=== PATIENT | male | born 1995 | race Caucasian/White ===

== ENCOUNTER 2019-02-25 05:55 | Inpatient (IN) | payer OTHER ==
[2019-02-25] VITALS (17 sets, daily range): BP systolic 109–133; BP diastolic 61–92; Ht 177.8 cm; Wt 59.6 kg
[~2019-02-25] VITALS: Ht 177.8 cm; Wt 59.6 kg
[2019-02-25 06:39] LABS: BASOPHIL % 0.4 % (0-2); PLATELET COUNT 373 x10^3mcL (130-400); RED CELL DISTRIBUTION WIDTH 13.4 % (11.5-14.5)
[2019-02-25 06:45] LABS: CALCIUM 9.2 mg/dL (8.5-10.1); CARBON DIOXIDE 14.2 mmol/L (21-32); CHLORIDE SERUM 99 mmol/L (98-107); CREATININE SERUM 1.2 mg/dL (0.7-1.3); GFR1 > 60 mL/min; GLUCOSE SERUM 275 mg/dL (74-106); SODIUM SERUM 138 mmol/L (136-145)
[2019-02-25 06:51] LABS: ALBUMIN 4.1 g/dL (3.4-5.0); ALKALINE PHOSPHATASE 107 U/L (46-116); ALT/SGPT 26 U/L (16-63); AST/SGOT 32 U/L (15-37); BILIRUBIN TOTAL 0.2 mg/dL (0.20-1.00)
[2019-02-25 07:15] LABS: TOTAL PROTEIN, SERUM 8.6 g/dL (6.4-8.2)
[2019-02-25] MEDS ORDERED: KEPPRA1000 M1 PO (08:38)
[2019-02-25] MEDS ORDERED: DILANTIN100 MG PO (08:39)
[2019-02-25 11:26] LABS: CHOLESTEROL/HDL RATIO 3.5; MAGNESIUM 2.4 mg/dL (1.8-2.4); PHOSPHOROUS 1.9 mg/dL (2.5-4.9)
[2019-02-25 11:36] LABS: T3 TOTAL 0.77 ng/mL
[2019-02-25 13:50] LABS: microscopic required? YES; urine erythrocyte 3+ (NEGATIVE)
[2019-02-25 14:47] LABS: AMPHETAMINE QUAL UR NONE DETECTED (See below)
[2019-02-25 14:55] LABS: FREE T4 0.91 ng/dL (0.76-1.46); FREE THYROXINE INDEX 1.9 ug/dL (1.4-4.5); T4(THYROXINE) 5.4 ug/dL (4.7-13.3)
== END 2019-02-26 01:09 | disposition short-term general hospital (02) | DRG 53 ==
LOC: ED → IC 07:42
PROVIDERS: Emergency Medicine; ADMIT General Practice
PROC: 5A1935Z Respiratory Ventilation, Less than 24 Consecutive Hours (ICD-10-PCS; principal; 2019-02-25)
PROC: 0BH17EZ Insertion of Endotracheal Airway into Trachea, Via Natural or Artificial Opening (ICD-10-PCS; 2019-02-25)
DX: G40.801 Other epilepsy, not intractable, with status epilepticus (principal); J96.00 Acute respiratory failure, unspecified whether with hypoxia or hypercapnia; E83.39 Other disorders of phosphorus metabolism; K21.9 Gastro-esophageal reflux disease without esophagitis; F41.9 Anxiety disorder, unspecified; Z87.820 Personal history of traumatic brain injury; Z88.0 Allergy status to penicillin
CPT/HCPCS: 84439; A4628; G0378; J1165; J2060; J2250; J2560; J2704; J7030

== ENCOUNTER 2019-10-21 09:24 | Emergency (ER) | payer OTHER ==
[~2019-10-21] VITALS: Ht 177.8 cm; Wt 72.6 kg
[~2019-10-21 09:24] MED LIST: DILANTIN100 MG PO; KEPPRA1000 M1 PO
[2019-10-21 09:30] VITALS: Ht 177.8 cm; Wt 72.6 kg
[2019-10-21 10:28] LABS: CALCIUM 9.3 mg/dL (8.5-10.1); CARBON DIOXIDE 23.2 mmol/L (21-32); CHLORIDE SERUM 101 mmol/L (98-107); CREATININE SERUM 1.1 mg/dL (0.7-1.3); GFR1 > 60 mL/min; GLUCOSE SERUM 122 mg/dL (74-106); POTASSIUM SERUM 3.7 mmol/L (3.5-5.1); SODIUM SERUM 140 mmol/L (136-145)
[2019-10-21 10:29] LABS: UA SPECIFIC GRAVITY 1.025 (1.005-1.035); microscopic required? YES; urine erythrocyte NEGATIVE (NEGATIVE)
[2019-10-21 10:38] LABS: ALBUMIN 4.5 g/dL (3.4-5.0); ALKALINE PHOSPHATASE 134 U/L (46-116); ALT/SGPT 32 U/L (16-63); AST/SGOT 24 U/L (15-37); BILIRUBIN TOTAL 0.19 mg/dL (0.20-1.00); CHOLESTEROL 170 mg/dL (<200); HDL CHOLESTEROL 44 mg/dL (40-60); LIPASE 106 IU/L (73-393)
[2019-10-21 10:47] LABS: BASOPHIL % 0.2 % (0-2); PLATELET COUNT 312 x10^3mcL (130-400); RED CELL DISTRIBUTION WIDTH 13.1 % (11.5-14.5); TOTAL PROTEIN, SERUM 8.9 g/dL (6.4-8.2)
[2019-10-21 12:49] LABS: AMPHETAMINE QUAL UR NONE DETECTED (See below)
[2019-10-21 14:32] VITALS: BP 109/63
== END 2019-10-21 14:33 | disposition home or self-care (01) ==
LOC: ED 09:24
PROVIDERS: Emergency Medicine
DX: G40.909 Epilepsy, unspecified, not intractable, without status epilepticus (principal); F10.10 Alcohol abuse, uncomplicated; Z88.0 Allergy status to penicillin; Z98.890 Other specified postprocedural states
CPT/HCPCS: 83880; G0480; J2405; Q0092

== ENCOUNTER 2019-11-10 11:31 | Emergency (ER) | payer OTHER ==
[~2019-11-10] VITALS: Ht 180.3 cm; Wt 62.1 kg
[2019-11-10 11:32] VITALS: Ht 180.3 cm; Wt 62.1 kg
[2019-11-10 13:03] VITALS: BP 111/61
== END 2019-11-10 13:03 | disposition home or self-care (01) ==
LOC: ED 11:31
DX: R42 Dizziness and giddiness (principal); Z76.0 Encounter for issue of repeat prescription; Z88.0 Allergy status to penicillin
CPT/HCPCS: 82962

== ENCOUNTER 2020-03-16 08:50 | Emergency (ER) | payer OTHER ==
[~2020-03-16] VITALS: Ht 165.1 cm; Wt 59.0 kg
[2020-03-16 09:13] VITALS: Ht 165.1 cm; Wt 59.0 kg
[2020-03-16 10:09] LABS: CALCIUM 8.9 mg/dL (8.5-10.1); CARBON DIOXIDE 28.3 mmol/L (21-32); CHLORIDE SERUM 99 mmol/L (98-107); CREATININE SERUM 0.7 mg/dL (0.7-1.3); GFR1 > 60 mL/min; GLUCOSE SERUM 91 mg/dL (74-106); POTASSIUM SERUM 4.5 mmol/L (3.5-5.1); SODIUM SERUM 134 mmol/L (136-145)
[2020-03-16 10:14] LABS: ALBUMIN 4.1 g/dL (3.4-5.0); ALKALINE PHOSPHATASE 94 U/L (46-116); ALT/SGPT 29 U/L (16-63); AST/SGOT 28 U/L (15-37); BILIRUBIN TOTAL 0.23 mg/dL (0.20-1.00)
[2020-03-16 12:20] LABS: AMPHETAMINE QUAL UR NONE DETECTED (See below)
[2020-03-16 12:32] VITALS: BP 115/74
== END 2020-03-16 12:32 | disposition home or self-care (01) ==
LOC: ED
PROVIDERS: Emergency Medicine
DX: R56.9 Unspecified convulsions (principal); R51.9 Headache, unspecified; Z88.0 Allergy status to penicillin
CPT/HCPCS: G0480